=== PATIENT | female | born 1965 | race Caucasian/White ===

== ENCOUNTER 2017-03-27 07:34 | Day surgery (SDC) | payer BC ==
[~2017-03-27 07:34] MED LIST: Lactated Ringers 1,000 ML IV SCH; Sodium Chloride 0.9% 10 ML Syringe FLUSH PRN
[2017-03-27] MEDS ORDERED: Propofol 200 MG/20 ML SDV IV ONE (09:00)
[2017-03-27] MEDS ORDERED: Midazolam 1 MG/ML 2 ML SDV IV ONE (09:00)
--- NOTE | 2017-03-27 09:36 | PCM.OPNOTE ---
- General Post-Op/Procedure Note Date of Surgery/Procedure: 03/27/17 Operative Procedure(s): c scope Findings: normal colon Pre Op Diagnosis: screening Post-Op Diagnosis: normal exam Anesthesia Technique: MAC Primary Surgeon: Anson Tirado Anesthesia Provider: Ashlee Reeves Pathology: none Complications: None Condition: Good Free Text/Narrative:: see dictation [id number]
--- NOTE | 2017-03-27 09:57 | OR ---
DATE OF OPERATION: 03/27/2017 SURGEON: Anson Tirado MD PROCEDURE PERFORMED: Colonoscopy. PREOPERATIVE DIAGNOSIS: Need for colon cancer screening. POSTOPERATIVE DIAGNOSIS: Normal colon. INDICATIONS FOR PROCEDURE: This is a 51-year-old white sheet female referred for initial screening colonoscopy. She was offered and accepted the same. DESCRIPTION OF OPERATION: After an excellent IV sedation was administered, digital rectal exam was performed. No marked abnormality was noted. A flexible colonoscope was inserted and advanced to the cecum without difficulty. The following findings were noted. Ascending colon, unremarkable. Transverse colon, unremarkable. Descending colon, unremarkable. Sigmoid and rectum unremarkable. Colon was deflated as the scope was removed. The patient tolerated the procedure well and was taken to recovery room in good condition. /[id number] GRISEL/PERLA
[2017-03-27 10:56] VITALS: BP 102/55
== END 2017-03-27 10:45 | disposition home or self-care (01) ==
LOC: FB.SDS 07:34
PROVIDERS: ATTEND Surgery
DX: Z12.11 Encounter for screening for malignant neoplasm of colon (principal); Z91.040 Latex allergy status; Z79.899 Other long term (current) drug therapy
CPT/HCPCS: 45378; J2250; J2704; J7120